=== PATIENT | female | born 1935 | race Caucasian/White ===

== ENCOUNTER 2016-09-17 18:03 | Emergency (ER) | payer MEDICARE, OTHER ==
[~2016-09-17] VITALS: Ht 162.6 cm; Wt 61.2 kg
[2016-09-17 18:03] VITALS: BP 149/87
--- NOTE | 2016-09-17 18:55 | PHYS DOC ---
General Chief Complaint: LACERATION/AVULSION Stated Complaint: FINGER LACERATION Time Seen by MD: 18:51 Source: patient Problems: History of Present Illness Initial Comments Patient here for laceration to the left middle finger. Patient was doing some baking just prior to arrival when she think she cut her finger on the sharp edge of a plastic baking cover. She noted lots of bleeding at home and presented here, being driven by her son who is also on check in the ER for an unrelated complaint. At this time, the patient complains of a laceration over the tip of the finger. She really has no pain in the area and no weakness numbness or tingling within the digit. There is no other injuries noted or reported. She done nothing at home for this and notes no factors that increase or decrease in symptoms she might have. Patient's past medical history is otherwise unremarkable. She has had cholecystectomy and bilateral mastectomy in the past. She is a nonsmoker and rare social user of ethanol. Her last tetanus is unknown. Allergies: Coded Allergies: No Known Drug Allergies (Unverified , 09/17/16) Past Medical History Medical History: cancer Social History Smoker: non-smoker Alcohol: rarely Review of Systems Constitutional: no symptoms reported Musculoskeletal: see HPI Skin: see HPI Psychiatric/Neurological: no symptoms reported Physical Exam General Appearance: WD/WN, no apparent distress Extremities: other Neurologic/Psychiatric: no motor/sensory deficits, alert, normal mood/affect, oriented x 3 Skin: normal color Comments Generally this is a well-developed well-nourished white female in no acute distress. Vitals are as noted. Pertinent findings on physical exam shows patient have about a 1.25 cm fishmouth laceration over the tip of the left middle finger. This appears to come up and about the nail margin on the ulnar aspect. She has good sensation in the digit and capillary refills intact. She has good flexion extension of the DIP joint with 5 over 5 strength. There is no other injuries noted. Remainder of physical exam is clinically unremarkable. Orders, Labs, Meds Old charts note no prior ER visits within the current system. 2015 Patient resting comfortably in the ED. Did explain to her that need for wound closure. She voices understanding. Under 1% lidocaine without epinephrine digital block and sterile technique, the laceration was explored finds skin and subcutaneous tissue involved only. It was copiously irrigated with normal saline. It was closed with 4 sutures of 4-0 nylon, with the most ulnar suture also passed through the nail. Patient tolerated procedure well. I discussed the patient home care for wound including rest, keep it clean and dry with soap and water, and follow up with primary care in 10-14 days for sutures out. She could also certainly return to the ER. She says she may wear some rubber gloves do housework and I think this is a edward move on her part. She doesn't know if she'll need any medicine at home for pain, so I write her prescription for some Tylenol with Codeine to use as needed. We'll provide her with appropriate wound care instructions. I did discuss with her that her son, who is also presented to be seen in the ED but has subsequently eloped, may have some significant alcohol on board. Apparently he drove her here, and I cautioned her about having him drive her home. She states that he has a long history of alcohol abuse and she is not surprised by this. She says she will drive herself home. She voices understanding again as the need to follow up with primary care physician for removal or return to ER sooner as needed if worse in anyway. She looks well, no acute discomfort or stress, okay for discharge home at this time. MARÍTN DENIS MD Sep 17, 2016 18:55
[2016-09-17] MEDS ORDERED: TETANUS AND DIPHTHERIA TOX/PF 0.5 ML VIAL. VAX IM ONE (19:15)
[2016-09-17] MEDS ORDERED: LIDOCAINE 1% Multi-Dose 20 ML VIAL. ONE (19:29)
== END 2016-09-17 20:44 | disposition home or self-care (01) ==
LOC: ER 18:03
DX: S61.213A Laceration without foreign body of left middle finger without damage to nail, initial encounter (principal); Z90.49 Acquired absence of other specified parts of digestive tract; Z90.13 Acquired absence of bilateral breasts and nipples; W45.8XXA Other foreign body or object entering through skin, initial encounter; Y93.89 Activity, other specified; Y92.89 Other specified places as the place of occurrence of the external cause; Y99.8 Other external cause status
CPT/HCPCS: 12001; 90471; 90714; 99283-25

== ENCOUNTER 2016-09-27 08:17 | Emergency (ER) | payer MEDICARE, OTHER ==
[2016-09-27 08:20] VITALS: BP 138/68
--- NOTE | 2016-09-27 11:03 | ED.ADGEN ---
Past History Past Medical History: Cancer Past Surgical History: Cancer Surgery, Hysterectomy Alcohol Use: Occasionally Drug Use: None Adult General HPI HPI Patient is a 81-year-old female presents emergency department for suture removal. Patient had 4 sutures placed on the tip of her finger 10 days ago. She denies that she has had any complications since they were placed. Review of Systems Review of Systems Constitutional: Denies fever or chills [] Eyes: Denies change in visual acuity, redness, or eye pain [] HENT: Denies nasal congestion or sore throat [] Respiratory: Denies cough or shortness of breath [] Cardiovascular: No additional information not addressed in HPI [] GI: Denies abdominal pain, nausea, vomiting, bloody stools or diarrhea [] : Denies dysuria or hematuria [] Musculoskeletal: Denies back pain or joint pain [] Integument: Denies rash or skin lesions [] Neurologic: Denies headache, focal weakness or sensory changes [] Endocrine: Denies polyuria or polydipsia [] Allergies Allergies Allergies Coded Allergies Type Severity Reaction Last Updated Verified No Known Drug Allergies 09/17/16 No Physical Exam Physical Exam Constitutional: Well developed, well nourished, no acute distress, non-toxic appearance. [] Finger has a small well healing incision without signs of infection. Current Patient Data Vital Signs Vital Signs Date Time Temp Pulse Resp B/P Pulse Ox O2 Delivery O2 Flow Rate FiO2 09/27/16 08:20 98.1 75 18 98 Room Air EKG EKG [] Radiology/Procedures Radiology/Procedures [] Course & Med Decision Making Course & Med Decision Making Pertinent Labs and Imaging studies reviewed. (See chart for details) Sutures were removed without any complications. [] Final Impression Final Impression Suture removal [] Problems: Dragon Disclaimer Dragon Disclaimer This electronic medical record was generated, in whole or in part, using a voice recognition dictation system. MARIA E GOLDBERG MD Sep 27, 2016 11:03
== END 2016-09-27 08:58 | disposition home or self-care (01) ==
LOC: ER 08:17
DX: S61.219D Laceration without foreign body of unspecified finger without damage to nail, subsequent encounter (principal); X58.XXXD Exposure to other specified factors, subsequent encounter; Y99.8 Other external cause status; Y92.89 Other specified places as the place of occurrence of the external cause
CPT/HCPCS: 99281

== ENCOUNTER → 2017-02-17 | Outpatient (CLI) | payer MEDICARE, OTHER ==
--- NOTE | 2017-02-17 16:07 | RAD ---
DEXA scan 02/17/2017 Clinical history: Risk factors for osteoporosis. Postmenopausal female. Technique: DEXA of the lumbar spine and right hip was performed. FINDINGS: The mean bone mineral density of the lumbar spine is 0 1.086 g/sq cm. This corresponds to a T score of - -0.8. This is consistent with within the lower limits of normal. The mean bone mineral density of the right hip is 0 0.834 g/sq cm. This corresponds to a T score of -1.4. This is consistent with mild osteopenia IMPRESSION: 1. Mild osteopenia the right hip. 2. The mean bone mineral density of the lumbar spine is within the lower limits of normal.. According to World Health Organization, the definition of osteoporosis and osteopenia for women is as follows: Normal = T score at or above -1.0 SD. Osteopenia = T score between -1.0 and -2.5 SD. Osteoporosis = T score at or below -2.5 SD.
== END | disposition home or self-care (01) ==
LOC: DXRAD 13:28
PROVIDERS: ATTEND Nurse Practitioner Family
DX: M85.88 Other specified disorders of bone density and structure, other site (principal); Z78.0 Asymptomatic menopausal state
CPT/HCPCS: 77080

== ENCOUNTER 2017-02-22 07:35 | Emergency (ER) | payer MEDICARE, OTHER ==
[~2017-02-22] VITALS: Ht 162.6 cm; Wt 61.2 kg
--- NOTE | 2017-02-22 08:03 | PHYS DOC ---
Past History Past Medical History: Cancer Past Surgical History: Cancer Surgery, Hysterectomy Alcohol Use: Occasionally Drug Use: None Adult General Chief Complaint Chief Complaint: CHEST PAIN HPI HPI Patient is a 82-year-old female with a past medical history of cancer with bilateral mastectomy that is distant started experiencing some chest discomfort about 4 AM this morning, it lasted approximately 5 minutes, it was on the side of the chest along the midaxillary line on the left side. He started with the patient was turning in bed. The pain did not radiate anywhere, the patient did not break into a sweat, no shortness of breath ,there was no nausea there was no vomiting. The discomfort has not resolved in the ED and the patient feels her baseline. The patient also denies any lower extremity pain or swelling that is new. Review of Systems Review of Systems Constitutional: Denies fever or chills [] HENT: No head or neck pain Respiratory: Denies cough or shortness of breath [] Cardiovascular: No additional information not addressed in HPI [] GI: Denies abdominal pain, nausea, vomiting, Musculoskeletal: Denies back pain or joint pain [] Integument: Denies rash or skin lesions [] Neurologic: Denies headache, focal weakness or sensory changes [] Allergies Allergies Allergies Coded Allergies Type Severity Reaction Last Updated Verified No Known Drug Allergies 09/17/16 No Physical Exam Physical Exam Constitutional: Well developed, well nourished, no acute distress, non-toxic appearance. [] HENT: Normocephalic, atraumatic,oropharynx moist, no oral exudates, nose normal. [] Eyes: EOMI, conjunctiva normal, no discharge. [] Neck: Normal range of motion, no tenderness, supple, no stridor. No JVD Cardiovascular:Heart rate regular rhythm, no murmur, equal pulses, normal perfusion. Bilateral mastectomy Lungs & Thorax: Bilateral breath sounds clear to auscultation, no tachypnea Abdomen: Bowel sounds normal, soft, no tenderness, no masses, no pulsatile masses. [] Skin: Warm, dry, no erythema, no rash. [] Back: No tenderness, no CVA tenderness. [] Extremities: No tenderness, no cyanosis, no DVT, ROM intact, no edema. [] Neurologic: Alert and oriented X 3, normal motor function, no focal deficits noted. [] Psychologic: Affect normal, judgement normal, mood normal. [] EKG EKG 0744 85 SR no stemi[] Radiology/Procedures Radiology/Procedures [] Course & Med Decision Making Course & Med Decision Making Pertinent Labs and Imaging studies reviewed. (See chart for details) 0950 patient is still symptomatic and feeling at baseline. I gave the patient a copy of her chest x-ray read discussed with her doctor. Given that the patient is not experiencing any fevers or shortness of breath or coughing do not believe she is having a developing pneumonia at this time. Patient has been given instructions of what as to what to look for regarding this. More likely this is just atelectasis. We will do an i-STAT troponin test negative. The patient home with follow-up with pcp. Patient is agreeable with this plan, has no objections to being discharged home and agrees to follow-up as directed. 1050 pt still asymptomatic, requesting discharge home. Istat tpn at this time negative [] Dragon Disclaimer Dragon Disclaimer This chart was dictated in whole or in part using Voice Recognition software in a busy, high-work load, and often noisy Emergency Department environment. It may contain unintended and wholly unrecognized errors or omissions. Departure Departure: Impression: Primary Impression: Chest pain Disposition: 01 HOME, SELF-CARE Condition: STABLE Referrals: SIGRDI MENDEZ APRN (PCP) please follow up for recheck in 1-2 days and discuss this ED visit Patient Instructions: Chest Pain (Nonspecific) Denise ALCALA MD Feb 22, 2017 08:03
[2017-02-22 08:04] LABS: BASO % 1 % (0-3); EOS # 0.1 x10^3/uL (0.0-0.7); EOS % 1 % (0-3); HEMATOCRIT 40.2 % (36.0-47.0); HEMOGLOBIN 13.1 g/dL (12.0-15.5); LYMPH # 1.3 x10^3/uL (1.0-4.8); LYMPH % 23 % (24-48); MEAN CORPUSCULAR HEMOGLOBIN 29 pg (25-35); MEAN CORPUSCULAR HGB CONC 33 g/dL (31-37); MEAN CORPUSCULAR VOLUME 90 fL (79-100); MONO # 0.8 x10^3/uL (0.0-1.1); MONO % 14 % (0-9); NEUT # 3.6 x10^3uL (1.8-7.7); NEUT % 62 % (31-73); PLATELET COUNT 190 x10^3/uL (140-400); RED BLOOD COUNT 4.49 x10^6/uL (3.50-5.40); RED CELL DISTRIBUTION WIDTH 14.3 % (11.5-14.5); WHITE BLOOD COUNT 5.9 x10^3/uL (4.0-11.0)
[2017-02-22 08:15] LABS: CALCIUM 8.8 mg/dL (8.5-10.1); CREATININE 0.9 mg/dL (0.6-1.0); GFR 59.7; POTASSIUM 3.9 mmol/L (3.5-5.1)
--- NOTE | 2017-02-22 09:33 | RAD ---
Examination: 2 views of the chest. History: History of chest pain Comparison: None available Findings: The cardiomediastinal silhouette grossly appears unremarkable. Mild prominent appearing bilateral interstitial lung markings. Faint airspace opacity right upper lobe of the lung. Moderate degenerative changes thoracic spine. Impression: Faint airspace opacity right upper lobe likely atelectasis or infiltrate.
--- NOTE | 2017-02-22 09:50 | EKG ---
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
[2017-02-22 11:05] VITALS: BP 143/85
== END 2017-02-22 11:15 | disposition home or self-care (01) ==
LOC: ER 07:35
DX: R07.89 Other chest pain (principal); Z90.13 Acquired absence of bilateral breasts and nipples
CPT/HCPCS: 36415; 71020; 80048; 84484; 85025; 93005; 99285-25

== ENCOUNTER 2021-10-28 11:12 | Emergency (ER) | payer MEDICARE, OTHER ==
[~2021-10-28] VITALS: Ht 162.6 cm; Wt 63.5 kg
[2021-10-28] MEDS ORDERED: IOHEXOL 300 MG/ML 75 ML VIAL. IV ONE (11:45)
--- NOTE | 2021-10-28 11:48 | EKG ---
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
[2021-10-28] MEDS ORDERED: CONTRAST GIVEN. MC PRN (12:00)
[2021-10-28 12:02] LABS: BASO % 0 % (0-3); EOS % 0 % (0-3); HEMATOCRIT 40.5 % (36.0-47.0); HEMOGLOBIN 13.3 g/dL (12.0-15.5); LYMPH # 0.6 x10^3/uL (1.0-4.8); LYMPH % 4 % (24-48); MEAN CORPUSCULAR HEMOGLOBIN 29 pg (25-35); MEAN CORPUSCULAR HGB CONC 33 g/dL (31-37); MEAN CORPUSCULAR VOLUME 88 fL (79-100); MONO # 0.9 x10^3/uL (0.0-1.1); MONO % 7 % (0-9); NEUT # 11.4 x10^3uL (1.8-7.7); NEUT % 88 % (31-73); PLATELET COUNT 180 x10^3/uL (140-400); RED BLOOD COUNT 4.59 x10^6/uL (3.50-5.40); RED CELL DISTRIBUTION WIDTH 15.6 % (11.5-14.5); WHITE BLOOD COUNT 12.9 x10^3/uL (4.0-11.0)
[2021-10-28 12:11] LABS: GFR 52.3; POTASSIUM 4.1 mmol/L (3.5-5.1)
--- NOTE | 2021-10-28 12:43 | PHYS DOC ---
Past History Past Medical History: Other Past Surgical History: Appendectomy, Cholecystectomy, Hysterectomy, Oophorectomy, Other Additional Past Surgical Histo: breasts. Alcohol Use: Occasionally Drug Use: None Adult General Chief Complaint Chief Complaint: MECHANICAL FALL HPI HPI Patient presents with 2 near syncopal episodes this morning. Patient states the first occurred when she walked out to get the newspaper. 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 Patient denies any injury from the fall states she was able to lower herself slowly. Patient then went into the house and went to the restroom. Patient reports after standing up from the toilet she again had similar sensation of feeling hot and flushed and then fell into the bathtub. Patient has significant left flank and left rib pain secondary to this. Patient denies any head injury at any time. Patient denies any true full loss of consciousness. Patient denies any chest pain or palpitations, no dizziness or vertigo sensation. Review of Systems Review of Systems Constitutional: Denies fever or chills [] Eyes: Denies change in visual acuity, redness, or eye pain [] HENT: Denies nasal congestion or sore throat [] Respiratory: Denies cough or shortness of breath [] Cardiovascular: Near syncope GI: Denies abdominal pain, nausea, vomiting, bloody stools or diarrhea [] : Denies dysuria or hematuria [] Musculoskeletal: Denies back pain or joint pain [] Integument: Denies rash or skin lesions [] Neurologic: Denies headache, focal weakness or sensory changes [] Endocrine: Denies polyuria or polydipsia [] All other systems were reviewed and found to be within normal limits, except as documented in this note. Current Medications Current Medications Current Medications Medications (Trade) Dose Ordered Sig/Ajit Start Time Stop Time Status Last Admin Dose Admin Info (Do NOT chart on this entry -- for MONITORING) 1 each PRN DAILY PRN 10/28/21 12:00 10/30/21 11:59 Iohexol (Omnipaque 300 Mg/ml) 75 ml 1X ONCE 10/28/21 11:45 10/28/21 11:51 DC Allergies Allergies Allergies Coded Allergies Type Severity Reaction Last Updated Verified No Known Drug Allergies 09/17/16 No Physical Exam Physical Exam Constitutional: Well developed, well nourished, no acute distress, non-toxic appearance. [] HENT: Normocephalic, atraumatic, bilateral external ears normal, oropharynx moist, no oral exudates, nose normal. [] Eyes: PERRLA, EOMI, conjunctiva normal, no discharge. [] Neck: Normal range of motion, no tenderness, supple, no stridor. [] Cardiovascular:Heart rate regular rhythm, no murmur [] Lungs & Thorax: Bilateral breath sounds clear to auscultation [] left inferior lateral chest wall with significant tender palpation over the lower ribs, mild crepitus appreciated Abdomen: Bowel sounds normal, soft, no tenderness, no masses, no pulsatile masses. [] Skin: Warm, dry, no erythema, no rash. [] Back: Left flank tender to palpation with mild ecchymosis appreciated Extremities: No tenderness, no cyanosis, no clubbing, ROM intact, no edema. [] Neurologic: Alert and oriented X 3, normal motor function, normal sensory function, no focal deficits noted. [] Psychologic: Affect normal, judgement normal, mood normal. [] Current Patient Data Vital Signs Vital Signs Date Time Temp Pulse Resp B/P (MAP) Pulse Ox O2 Delivery O2 Flow Rate FiO2 10/28/21 12:33 81 16 141/64 (89) 97 Room Air 10/28/21 11:22 98.2 Lab Results Laboratory Tests Test 10/28/21 11:40 White Blood Count 12.9 x10^3/uL (4.0-11.0) H Red Blood Count 4.59 x10^6/uL (3.50-5.40) Hemoglobin 13.3 g/dL (12.0-15.5) Hematocrit 40.5 % (36.0-47.0) Mean Corpuscular Volume 88 fL (79-100) Mean Corpuscular Hemoglobin 29 pg (25-35) Mean Corpuscular Hemoglobin Concent 33 g/dL (31-37) Red Cell Distribution Width 15.6 % (11.5-14.5) H Platelet Count 180 x10^3/uL (140-400) Neutrophils (%) (Auto) 88 % (31-73) H Lymphocytes (%) (Auto) 4 % (24-48) L Monocytes (%) (Auto) 7 % (0-9) Eosinophils (%) (Auto) 0 % (0-3) Basophils (%) (Auto) 0 % (0-3) Neutrophils # (Auto) 11.4 x10^3uL (1.8-7.7) H Lymphocytes # (Auto) 0.6 x10^3/uL (1.0-4.8) L Monocytes # (Auto) 0.9 x10^3/uL (0.0-1.1) Eosinophils # (Auto) 0.0 x10^3/uL (0.0-0.7) Basophils # (Auto) 0.0 x10^3/uL (0.0-0.2) Sodium Level 138 mmol/L (136-145) Potassium Level 4.1 mmol/L (3.5-5.1) Chloride Level 102 mmol/L (98-107) Carbon Dioxide Level 26 mmol/L (21-32) Anion Gap 10 (6-14) Blood Urea Nitrogen 29 mg/dL (7-20) H Creatinine 1.0 mg/dL (0.6-1.0) Estimated GFR (Cockcroft-Gault) 52.3 Glucose Level 225 mg/dL (70-99) H Calcium Level 9.0 mg/dL (8.5-10.1) Troponin I High Sensitivity 10 ng/L (4-50) EKG EKG [] Normal sinus rhythm, no QRS widening, normal QT segment, no ST changes Radiology/Procedures Radiology/Procedures [] Heart Score C/O Chest Pain: No Risk Factors: Risk Factors: DM, Current or recent (<one month) smoker, HTN, HLP, family history of CAD, obesity. Risk Scores: Risk Factors: DM, Current or recent (<one month) smoker, HTN, HLP, family history of CAD, obesity. Course & Med Decision Making Course & Med Decision Making Patient with 2 near syncopal episodes this morning 1 resulting in a fall with very significant left flank and left lateral posterior rib area region. Patient with some ecchymosis in this region. Given the degree of pain as well as the patient's age and risk factors, we will pursue CT imaging. Patient otherwise will get full lab evaluation and we will check orthostatic vital signs. 1602-patient with labs without significant abnormality noted. No urinary tract infection. Other labs all the patient baseline without significant abnormality noted. Orthostatic vital signs were also stable in the emergency department. Patient CT imaging pursued secondary to significant degree of pain after the fall. Very significant overall findings with fractures to the ninth 10th and 11th ribs, small right pleural effusion. Also fractures to the T10, L1 and L2 transverse process, as well as possible sacral alar fracture. No internal injuries noted. Patient's vital signs continue to be stable in the emergency department and pain is reasonably well controlled without significant movement. Patient however had 2 near syncopal events this morning, does live alone now with multiple overall fractures, does warrant inpatient admission and further work-up and evaluation. This was discussed with hospitalist at this facility, but it was felt that the patient required higher level of care and further consultation then available at this facility and therefore [facility] was contacted. Dragon Disclaimer Dragon Disclaimer This electronic medical record was generated, in whole or in part, using a voice recognition dictation system. Departure Departure: Impression: Primary Impression: Near syncope Additional Impressions: Multiple fractures of ribs, right side, initial encounter for closed fracture Fracture of transverse process of thoracic vertebra Fracture of transverse process of lumbar vertebra Sacral fracture, closed Disposition: 02 SHORT TERM HOSPITAL Admitting Physician: Nicole Chawla Condition: STABLE Referrals: CRISTIN PLASENCIA MD (PCP) Problem Qualifiers RALEIGH SON MD October 28, 2021 12:43
[2021-10-28 13:11] LABS: CLARITY,URINE CLEAR; COLOR,URINE YELLOW; GLUCOSE,URINE 100 mg/dL (NEG)
[2021-10-28 13:12] LABS: AMORPHOUS SEDIMENT,UR PRESENT /HPF; BACTERIA,URINE FEW /HPF (0-FEW); NITRITE,URINE NEG (NEG); RBC,URINE RARE /HPF (0-2); SQUAMOUS EPITHELIAL CELL,UR MOD /LPF; UROBILINOGEN,URINE 0.2 mg/dL (0.2 mg/dL); WBC,URINE OCC /HPF (0-4)
--- NOTE | 2021-10-28 15:09 | RAD ---
EXAM: CT CHEST ABDOMEN AND PELVIS WITH CONTRAST INDICATION: Fall, left rib and flank pain ecchymosis COMPARISON: None TECHNIQUE: Helical CT imaging performed of the chest abdomen and pelvis after administration of of in travenous contrast. Sagittal and coronal reformats were obtained. One or more of the following individualized dose reduction techniques were utilized for this examinat ion: 1. Automated exposure control 2. Adjustment of the mA and/or kV according to patient size 3. Use of iterative reconstruction technique. FINDINGS: CHEST: Thyroid gland and thoracic inlet: Thyroid gland is normal. Heart and great vessels: Heart is normal in size. No pericardial effusion. The thoracic aorta is norm al in caliber without evidence of traumatic injury. Mediastinum and karissa: No mediastinal hematoma. Small subcarinal lymph node, nonspecific. Lungs and pleura: No pneumothorax. Trace right pleural effusion. Nodular subpleural opacities in the posterior right lower lobe are likely atelectasis. The lungs are hyperexpanded. There are bilateral s ubpleural reticular changes, nonspecific. Mild pleural parenchymal scarring in the apices. Chest wall and axillae: Unremarkable. Bones: There is a mildly displaced fracture of the right posterior 10th rib. Small amount of adjacent soft tissue gas in the right chest wall. 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 There is a mildly displaced fracture of the right T10 transverse process. Thor acic kyphosis. Mild degenerative disc disease. Bridging osteophytes or syndesmophytes at multiple lev els in the midthoracic spine. Large right paracentral calcified disc extrusion at T9, causing mild to moderate canal narrowing. ABDOMEN: There is motion artifact in the abdomen. Liver: No focal liver lesion. Gallbladder/Biliary Tree: Cholecystectomy. Pancreas: Normal. Spleen: Evaluation of the spleen is limited due to motion artifact. No definite abnormality of the sp celeste. Adrenal Glands: Normal. Kidneys, ureters, and bladder: Kidneys are normal in size and enhance symmetrically. No hydronephrosi s.Delayed images of the bladder demonstrate distention of the bladder with contrast. No contrast extr avasation. Stomach, small bowel, and colon: Small hiatal hernia. No small bowel obstruction. There is colonic di verticulosis. Vasculature: Abdominal aorta is normal in caliber. The IVC is flattened appearance, which may reflect hydration status. Lymph Nodes: No lymphadenopathy. Peritoneum and retroperitoneum: No retroperitoneal hematoma, ascites, or free air. Bones: There are minimally displaced fractures of the right L1 and L2 transverse processes. Suspect s ubtle nondisplaced right sacral alar fracture with focal disruption of the cortex (image 24 and 25, a xial series). Grade 1 spondylolisthesis at L4-L5. Severe lower lumbar facet arthrosis. IMPRESSION: 1. Mildly displaced right posterior 10th rib fracture. Nondisplaced right posterior 9th and 11th rib fractures. Trace right pleural effusion. No pneumothorax. 2. Minimally displaced right transverse process fractures of T10, L1, and L2. 3. Suspected subtle nondisplaced right sacral alar fracture. 4. No evidence of solid organ injury. 5. Flattened appearance of IVC, which may reflect hydration status. FOR INTERNAL CODING PURPOSES Critical result: Findings discussed with RALEIGH SON MD at 10/28/2021 2:25 PM. RESULT CODE: (C) Electronically signed by: Silvia Parikh MD (10/28/2021 3:06 PM) [facility]
[2021-10-28] MEDS ORDERED: MORPHINE SULFATE 2 MG/ML DISP.SYRIN. IV ONE ×2 (17:00→20:15)
[2021-10-28 19:30] VITALS: BP 145/83
== END 2021-10-28 20:12 | disposition short-term general hospital (02) ==
LOC: ER 11:12
DX: S22.41XA Multiple fractures of ribs, right side, initial encounter for closed fracture (principal); S22.078A Other fracture of T9-T10 vertebra, initial encounter for closed fracture; S32.018A Other fracture of first lumbar vertebra, initial encounter for closed fracture; S32.028A Other fracture of second lumbar vertebra, initial encounter for closed fracture; S32.10XA Unspecified fracture of sacrum, initial encounter for closed fracture; S30.1XXA Contusion of abdominal wall, initial encounter; R55 Syncope and collapse; Z90.89 Acquired absence of other organs; Z90.49 Acquired absence of other specified parts of digestive tract; Z90.710 Acquired absence of both cervix and uterus; Z90.722 Acquired absence of ovaries, bilateral; W18.39XA Other fall on same level, initial encounter; Y93.89 Activity, other specified; Y92.89 Other specified places as the place of occurrence of the external cause; Y99.8 Other external cause status
CPT/HCPCS: 36415; 71260; 74177; 80048; 81001; 84484; 85025; 93005; 96374; 96376; 99285; J2270; Q9967